=== PATIENT | female | born 1970 | race Two or more races ===

== ENCOUNTER 2019-10-27 12:54 | Emergency (ER) | payer OTHER ==
[~2019-10-27] VITALS: Ht 160 cm; Wt 83.0 kg
--- NOTE | 2019-10-27 13:05 | NUR ---
Spoke symptoms to MD Harvey and no code neuro at this time.
[2019-10-27 13:50] LABS: BASOPHILS # (AUTO) 0.08 x10^3/uL (0-0.1); BASOPHILS % (AUTO) 1 % (0-1); EOSINOPHILS # (AUTO) 0.07 x10^3/uL (0-0.4); EOSINOPHILS % (AUTO) 1 % (1-7); LYMPHOCYTES # (AUTO) 3.24 x10^3/uL (1-3.4); LYMPHOCYTES % (AUTO) 47 % (22-44); MD NO; MEAN CORPUSCULAR HEMOGLOBIN 29.5 pg (27.0-34.8); MEAN CORPUSCULAR HGB CONC 32.6 g/dL (32.4-35.8); MEAN CORPUSCULAR VOLUME 90.4 fL (80-100); MEAN PLATELET VOLUME 7.3 fL (7.4-10.4); MONOCYTES # (AUTO) 0.53 x10^3/uL (0.2-0.8); MONOCYTES % (AUTO) 8 % (2-9); NEUTROPHILS # (AUTO) 2.92 x10^3/uL (1.8-6.8); NEUTROPHILS % (AUTO) 43 % (42-75); PLATELET COUNT 383 x10^3/uL (130-400); RED BLOOD COUNT 4.56 x10^6/uL (3.82-5.3); RED CELL DISTRIBUTION WIDTH 13.9 % (9.6-15.2)
[2019-10-27 13:57] LABS: ALBUMIN 3.9 g/dL (3.4-5.0); ANION GAP 7 mmol/L (5-15); CALCIUM 9.4 mg/dL (8.5-10.1); CHLORIDE 107 mmol/L (98-107); CREATININE 0.59 mg/dL (0.55-1.02)
[2019-10-27 14:33] VITALS: BP 121/52
--- NOTE | 2019-10-27 14:34 | NUR ---
PT TO CT AT THIS TIME
== END 2019-10-27 15:16 | disposition home or self-care (01) ==
LOC: ED 14:17
DX: G89.29 Other chronic pain (principal); M54.5 Low back pain; R20.0 Anesthesia of skin; I63.9 Cerebral infarction, unspecified
CPT/HCPCS: 36415; 70551; 72131; 80048; 82040; 83735; 85025; 99285

== ENCOUNTER 2020-01-29 13:40 | Outpatient (CLI) | payer OTHER | END 2020-01-29 23:59 | disposition home or self-care (01) | LOC: CVU 13:40 → EDSTATUS 14:00 → CVU 23:59 | PROVIDERS: ATTEND Emergency Medicine Emergency Medical Services | DX: G46.4 Cerebellar stroke syndrome (principal) | CPT/HCPCS: 93306 ==

== ENCOUNTER → 2020-03-12 | Outpatient (CLI) | payer OTHER | END | disposition home or self-care (01) | LOC: STAR 14:29 | PROVIDERS: ATTEND Internal Medicine Cardiovascular Disease | DX: Z20.828 Contact with and (suspected) exposure to other viral communicable diseases (principal) | CPT/HCPCS: 87635 ==

== ENCOUNTER 2020-03-18 09:49 | Day surgery (SDC) | payer OTHER ==
[~2020-03-18] VITALS: Ht 160 cm; Wt 72.7 kg
[2020-03-18] MEDS ORDERED: CITA10TA4 PO (10:22)
[2020-03-18] MEDS ORDERED: CHOL10003 PO (10:22)
[2020-03-18] MEDS ORDERED: ASPI-650 PO (10:22)
[2020-03-18] MEDS ORDERED: Tumeric PO (10:22)
[2020-03-18] MEDS ORDERED: GLUC1CAP18 PO (10:22)
[2020-03-18] MEDS ORDERED: FAMO20TA7 PO (10:22)
[2020-03-18 10:23] VITALS: BP 108/56
[2020-03-18] MEDS ORDERED: SODIUM CHLORIDE 0.9% 1,000 ML IV SCH (10:30)
== END 2020-03-18 12:43 | disposition home or self-care (01) ==
LOC: CACL 09:49
PROVIDERS: ATTEND Internal Medicine Cardiovascular Disease
DX: I63.9 Cerebral infarction, unspecified (principal); I08.3 Combined rheumatic disorders of mitral, aortic and tricuspid valves; Z79.82 Long term (current) use of aspirin; Z79.899 Other long term (current) drug therapy; Z82.49 Family history of ischemic heart disease and other diseases of the circulatory system
CPT/HCPCS: 93312; 93325

== ENCOUNTER 2020-05-20 11:55 | Observation (INO) | payer OTHER ==
[~2020-05-20] VITALS: Ht 160 cm; Wt 72.3 kg
[~2020-05-20 11:55] MED LIST: ASPI-1026 PO; CHOL10003 PO; CITA10TA4 PO; FAMO20TA7 PO; GLUC1CAP18 PO; Tumeric PO
[2020-05-20] MEDS ORDERED: SODIUM CHLORIDE 0.9% 1,000 ML IV SCH ×3 (12:30→17:30)
[2020-05-20] MEDS ORDERED: LORA10TA75 PO (12:31)
[2020-05-20 12:39] VITALS: BP 113/51
[2020-05-20 13:08] LABS: BASOPHILS % (AUTO) 1 % (0-1); EOSINOPHILS % (AUTO) 1 % (1-7); LYMPHOCYTES % (AUTO) 46 % (22-44); MEAN CORPUSCULAR HEMOGLOBIN 29.7 pg (27.0-34.8); MEAN CORPUSCULAR HGB CONC 33.6 g/dL (32.4-35.8); MONOCYTES % (AUTO) 7 % (2-9); NEUTROPHILS % (AUTO) 46 % (42-75); PLATELET COUNT 307 x10^3/uL (130-400); RED BLOOD COUNT 4.26 x10^6/uL (3.82-5.3); RED CELL DISTRIBUTION WIDTH 13.8 % (9.6-15.2)
[2020-05-20 13:09] LABS: MD NO
[2020-05-20 13:21] LABS: ANION GAP 6 mmol/L (5-15); CALCIUM 8.9 mg/dL (8.5-10.1); CHLORIDE 110 mmol/L (98-107)
[2020-05-20 13:26] LABS: CREATININE 0.44 mg/dL (0.55-1.02)
[2020-05-20] MEDS ORDERED: MIDAZOLAM 1 MG/ML, 2ML ONE (13:27)
[2020-05-20] MEDS ORDERED: PROPOFOL 50 ML ONE (13:27)
[2020-05-20] MEDS ORDERED: FENTANYL PF 250 MCG/5ML ONE (13:27)
[2020-05-20] MEDS ORDERED: LIDOCAINE 1%, 20ML ONE (13:31)
[2020-05-20] MEDS ORDERED: PROTAMINE SULFATE 10 MG/ML, 5ML ONE (13:31)
[2020-05-20] MEDS ORDERED: PROPOFOL 10 MG/ML, 20ML ONE (13:34)
[2020-05-20] MEDS ORDERED: ONDANSETRON 2MG/ML, 2ML ONE (13:34)
[2020-05-20] MEDS ORDERED: HEPARIN 1,000 UNITS/ML, 10ML ONE ×2 (13:34)
[2020-05-20] MEDS ORDERED: DEXAMETHASONE 4 MG/ML, 1ML ONE (13:34)
[2020-05-20] MEDS ORDERED: SUCCINYLCHOLINE 20 MG/ML, 10ML ONE (13:37)
[2020-05-20] MEDS ORDERED: ROCURONIUM 10 MG/ML,10ML ONE (13:37)
[2020-05-20] MEDS ORDERED: CLOP75TA PO (14:47)
[2020-05-20] MEDS ORDERED: ONDANSETRON 2MG/ML, 2ML IVPush PRN ×2 (15:00→17:00)
[2020-05-20] MEDS ORDERED: LABETALOL 20 MG/4 ML IVPush PRN ×2 (15:00→17:00)
[2020-05-20] MEDS ORDERED: hydrALAzine 20 MG/ML, 1ML IVPush PRN ×2 (15:00→17:00)
[2020-05-20] MEDS ORDERED: ACETAMINOPHEN 650 MG SUPP PR PRN ×2 (15:00→17:00)
[2020-05-20] MEDS ORDERED: ACETAMINOPHEN 650 MG/20.3 ML UDC PO PRN ×2 (15:00→17:00)
[2020-05-20] MEDS ORDERED: CLOPIDOGREL 300 MG TABLET ONE (15:23)
[2020-05-20 16:40] VITALS: BP 111/58
[2020-05-20 19:47] VITALS: BP 116/73
[2020-05-20] MEDS ORDERED: ACETAMINOPHEN 325 MG TABLET ONE (20:30)
[2020-05-20] MEDS ORDERED: CLOPIDOGREL 300 MG TABLET PO ONE (21:00)
[2020-05-21] MEDS ORDERED: CLOPIDOGREL 75 MG TABLET PO SCH (09:00)
[2020-05-21] MEDS ORDERED: ASPIRIN 81 MG TABLET EC PO SCH ×2 (09:00)
== END 2020-05-20 21:00 | disposition home or self-care (01) ==
LOC: CACL 11:55 → 5SO 14:47 → CACL 14:47 → UNDOADMIN 14:47 → 5SO 16:20
PROVIDERS: ADMIT Internal Medicine Cardiovascular Disease; ATTEND Internal Medicine Cardiovascular Disease
DX: I63.9 Cerebral infarction, unspecified (principal); Z20.822 Contact with and (suspected) exposure to COVID-19; Z86.73 Personal history of transient ischemic attack (TIA), and cerebral infarction without residual deficits
CPT/HCPCS: 36415; 76937; 80048; 84703; 85025; 85347; 87635; 93005; 93308; 93312; 93321; 93325; 93580; C1760; C1769; C1817; C1894; G0378; J0330; J1100; J1644; J2250; J2405; J2704; J2720; J3010; J3490

== ENCOUNTER → 2020-06-22 | Outpatient (CLI) | payer OTHER ==
[~2020-06-22] MED LIST changes: +CLOP75TA PO; +LORA10TA75 PO
== END | disposition home or self-care (01) ==
LOC: CFH 15:29
PROVIDERS: ATTEND Internal Medicine Cardiovascular Disease
DX: Z01.810 Encounter for preprocedural cardiovascular examination (principal); R06.02 Shortness of breath; Q21.1 Atrial septal defect; I65.29 Occlusion and stenosis of unspecified carotid artery
CPT/HCPCS: 93306